=== PATIENT | female | born 1990 | race Caucasian/White ===

== ENCOUNTER 2019-08-24 20:10 | Emergency (ER) | payer MEDICAID ==
[~2019-08-24] VITALS: Ht 165.1 cm; Wt 61.2 kg
[2019-08-24 20:36] VITALS: BP_SYST 136
--- NOTE | 2019-08-24 20:36 | NUR ---
Patient to ER bed 06 to gown for evaluation. Side rails up. Report given to LI Noble.
--- NOTE | 2019-08-24 20:40 | NUR ---
Pt brought in by sister Joya. Pt sister stated that the patient and herself were in the grocery store when the patient appeared to be "leaning out of her wheelchair" and behaving in altered state, not responding to questions appropriately. Sister states that patient was then lifted into vehicle with help from bystanders and she came to ED. Pt presented to ED mildly confused, lethargic. Pt and family member interviewed and states no chest pain, no nausea, no vomiting, no diarrhea, no shortness of breath. Pt denies additional medical complaint at this time. Pt denies pain. Pt states that she has had her indwelling catheter in for approx 1 month without being changed. Pt also states that her catheter had to be modified because it broke open at some point. Pt states she had UTi prior to starting catheter. Pt resting in ed bed comfortably, no acute distress. Pt VSS
--- NOTE | 2019-08-24 20:45 | NUR ---
ER at bedside examining patient.
[2019-08-24] MEDS ORDERED: NACL 0.9% 1,000 ML IV ONE (20:48)
[2019-08-24] MEDS ORDERED: LORazepam 2 MG/ML VIAL IVP ONE (21:00)
[2019-08-24 21:52] LABS: BILIRUBIN,URINE NEGATIVE (NEGATIVE); BLOOD, URINE NEGATIVE (NEGATIVE); COLOR,URINE YELLOW (YELLOW); GLUCOSE,URINE NEGATIVE (NEGATIVE); KETONES,URINE NEGATIVE (NEGATIVE); LEUKOCYTE ESTERASE ,URINE 2+ (NEGATIVE); NITRITE, URINE POSITIVE (NEGATIVE); PH,URINE 5.5 (5.0-8.0); PROTEIN URINE NEGATIVE (NEGATIVE); UROBILINOGEN,URINE 0.2 (0.2-1.0)
[2019-08-24 22:00] LABS: BASOPHILS # (AUTO) 0.1 K/uL (0.0-0.2); BASOPHILS % (AUTO) 0.6 % (0.0-2.0); EOSINOPHILS # (AUTO) 0.3 K/uL (0.0-0.4); EOSINOPHILS % (AUTO) 3.9 % (0.0-4.0); HEMATOCRIT 40.9 % (36-48); HEMOGLOBIN 13.8 g/dL (12.0-16.0); LYMPHOCYTES # (AUTO) 3.3 K/uL (1.0-5.5); LYMPHOCYTES % (AUTO) 39.2 % (20.5-51.5); MEAN CORPUSCULAR HEMOGLOBIN 30 pg (27-31); MEAN CORPUSCULAR HGB CONC 34 % (32-36); MEAN CORPUSCULAR VOLUME 90 fL (79.0-98.0); MONOCYTES # (AUTO) 0.8 K/uL (0.0-1.0); MONOCYTES % (AUTO) 9.1 % (1.7-9.3); NEUTROPHILS % (AUTO) 47.2 % (40.0-70.0); PLATELET COUNT (AUTO) 350 K/uL (130-430); RED BLOOD CELL COUNT(AUTO) 4.56 MIL/uL (4.2-6.2); RED CELL DISTRIBUTION WIDTH 12.9 % (9.0-15.0); WHITE BLOOD COUNT (AUTO) 8.4 K/uL (4.8-10.8)
--- NOTE | 2019-08-24 22:00 | NUR ---
Pt resting in ED bed comfortably. No acute distress. Sister bedside.
[2019-08-24 22:04] LABS: CALCIUM 9.2 mg/dL (8.4-11.0); CREATININE 0.76 mg/dL (0.55-1.30); POTASSIUM 3.6 mmol/L (3.5-5.1)
[2019-08-24 22:04] LABS: BARBITURATE, URINE NEGATIVE (NEG <=200); BENZODIAZEPINE, URINE NEGATIVE (NEG <=150); CANNABINOID, URINE NEGATIVE (NEG <=50); COCAINE, URINE NEGATIVE (NEG <=150); METHAMPHETAMINES SCREEN,URINE NEGATIVE (NEG <=500); OPIATE, URINE NEGATIVE (NEG <=100); PHENCYCLIDINE SCREEN,URINE NEGATIVE (NEG <=25); UR TRICYCLIC ANTIDEPRESSANTS NEGATIVE (NEG <=300); URINE AMPHETAMINE NEGATIVE (NEG <=500); URINE METHADONE NEGATIVE (NEG <=200); URINE OXYCODONE SCREEN POSITIVE (NEG <=100); URINE PROPOXYPHENE SCREEN NEGATIVE (NEG <=300)
[2019-08-24 22:10] LABS: ALBUMIN 4.2 g/dL (3.4-4.8); TOTAL BILIRUBIN 0.5 mg/dL (0.0-1.0)
[2019-08-24 22:13] LABS: CLARITY/URINE HAZY (CLEAR)
[2019-08-24 22:16] LABS: BACTERIA,URINE MODERATE /HPF (None Seen); MUCUS,URINE None Seen /LPF (None Seen); RBC,URINE 0-3 /HPF (0-3)
[2019-08-24] MEDS ORDERED: cefTRIAXone 1 GM IVPB PREMIX 50 ML IV ONE (22:30)
--- NOTE | 2019-08-24 23:12 | NUR ---
Sister of patient requested new blanket, blanket and pillow provided.
--- NOTE | 2019-08-25 00:31 | NUR ---
Pt denies any pain at this time. Pt resting comfortably.
--- NOTE | 2019-08-25 01:10 | NUR ---
Pt tolerating IV fluids well.
--- NOTE | 2019-08-25 02:00 | NUR ---
Pt Indwelling danielson catheter Removed, discarded. Pt provided with [facility] [employer], assisted with personal hygeine.
--- NOTE | 2019-08-25 03:25 | NUR ---
# 16 FR Danielson catheter with use of sterile technique. Immediate return of 100 cc Clear, light yellow urine noted. Bedside drainage bag placed below level of bladder. Urine sample collected and sent to lab. Pt tolerated procedure well. Patient arrived with danielson in place, changed due to standard of practice, and current uti.
--- NOTE | 2019-08-25 04:00 | NUR ---
Pt Tolerating IV fluids, New placed danielson catheter, medications well.
[2019-08-25 04:50] VITALS: BP_SYST 130
--- NOTE | 2019-08-25 04:50 | NUR ---
Patient given written and verbal discharge instructions and verbalizes understanding. ER MD discussed with patient the results and treatment provided. Patient in stable condition. ID arm band removed. IV catheter removed intact and dressing applied, no active bleeding. Rx of Nitrofurantoin given. Patient educated on pain management and to follow up with PMD. Pain Scale 0/10. Opportunity for questions provided and answered. Medication side effect fact sheet provided.
== END 2019-08-25 04:50 | disposition home or self-care (01) ==
LOC: SED 20:10
DX: N39.0 Urinary tract infection, site not specified (principal); M62.838 Other muscle spasm; R55 Syncope and collapse; R42 Dizziness and giddiness; R11.0 Nausea
CPT/HCPCS: 36415; 80053; 80307; 81000; 83605; 85025; 87040; 87086; 96361; 96365; 96375; 99284; J0696; J2060; J7030; 87186-TC

== ENCOUNTER 2019-08-30 15:02 | Emergency (ER) | payer MEDICAID ==
[~2019-08-30] VITALS: Ht 172.7 cm; Wt 68.0 kg
[2019-08-30 15:19] VITALS: BP_SYST 123
[2019-08-30] MEDS ORDERED: NACL 0.9% 1,000 ML IV ONE (16:52)
[2019-08-30] MEDS ORDERED: DIPHENHYDRAMINE INJ 50 MG/ML VIAL IVP ONE (17:00)
[2019-08-30] MEDS ORDERED: ONDANSETRON HCL 4 MG/2 ML VIAL IVP ONE ×2 (17:00→20:30)
[2019-08-30] MEDS ORDERED: KETOROLAC TROMETHAMINE 30 MG VIAL IVP ONE (17:00)
[2019-08-30 17:32] LABS: BILIRUBIN,URINE NEGATIVE (NEGATIVE); CLARITY/URINE CLEAR (CLEAR); COLOR,URINE YELLOW (YELLOW); GLUCOSE,URINE NEGATIVE (NEGATIVE); KETONES,URINE NEGATIVE (NEGATIVE); LEUKOCYTE ESTERASE ,URINE NEGATIVE (NEGATIVE); NITRITE, URINE NEGATIVE (NEGATIVE); PH,URINE 5.5 (5.0-8.0); PROTEIN URINE NEGATIVE (NEGATIVE); UROBILINOGEN,URINE 0.2 (0.2-1.0)
[2019-08-30 17:33] LABS: BASOPHILS % (AUTO) 0.2 % (0.0-2.0); EOSINOPHILS # (AUTO) 0.2 K/uL (0.0-0.4); EOSINOPHILS % (AUTO) 2.9 % (0.0-4.0); HEMATOCRIT 40.5 % (36-48); HEMOGLOBIN 13.8 g/dL (12.0-16.0); LYMPHOCYTES # (AUTO) 1.6 K/uL (1.0-5.5); MEAN CORPUSCULAR HEMOGLOBIN 31 pg (27-31); MEAN CORPUSCULAR HGB CONC 34 % (32-36); MEAN CORPUSCULAR VOLUME 90 fL (79.0-98.0); MONOCYTES # (AUTO) 0.5 K/uL (0.0-1.0); MONOCYTES % (AUTO) 7.3 % (1.7-9.3); NEUTROPHILS # (AUTO) 4.1 K/uL (1.8-7.7); NEUTROPHILS % (AUTO) 64.6 % (40.0-70.0); PLATELET COUNT (AUTO) 296 K/uL (130-430); RED BLOOD CELL COUNT(AUTO) 4.51 MIL/uL (4.2-6.2); RED CELL DISTRIBUTION WIDTH 13.3 % (9.0-15.0); WHITE BLOOD COUNT (AUTO) 6.3 K/uL (4.8-10.8)
[2019-08-30 17:38] LABS: BLOOD, URINE TRACE (NEGATIVE)
[2019-08-30 17:39] LABS: BACTERIA,URINE FEW /HPF (None Seen); MUCUS,URINE None Seen /LPF (None Seen); RBC,URINE 0-3 /HPF (0-3); WBC,URINE 0-3 /HPF (0-3)
[2019-08-30 17:41] LABS: CREATININE 0.6 mg/dL (0.55-1.30); POTASSIUM 3.9 mmol/L (3.5-5.1)
[2019-08-30 17:41] LABS: BARBITURATE, URINE NEGATIVE (NEG <=200); BENZODIAZEPINE, URINE NEGATIVE (NEG <=150); CANNABINOID, URINE NEGATIVE (NEG <=50); COCAINE, URINE NEGATIVE (NEG <=150); METHAMPHETAMINES SCREEN,URINE NEGATIVE (NEG <=500); OPIATE, URINE NEGATIVE (NEG <=100); PHENCYCLIDINE SCREEN,URINE NEGATIVE (NEG <=25); UR TRICYCLIC ANTIDEPRESSANTS NEGATIVE (NEG <=300); URINE AMPHETAMINE NEGATIVE (NEG <=500); URINE METHADONE NEGATIVE (NEG <=200); URINE OXYCODONE SCREEN POSITIVE (NEG <=100); URINE PROPOXYPHENE SCREEN NEGATIVE (NEG <=300)
[2019-08-30 17:44] LABS: PROTHROMBIN TIME 9.9 SECS (9.5-12.5)
[2019-08-30 17:46] LABS: ALBUMIN 4.4 g/dL (3.4-4.8); TOTAL BILIRUBIN 0.3 mg/dL (0.0-1.0)
[2019-08-30] MEDS ORDERED: ONDANSETRON 4 MG ODT TAB PO ONE (20:30)
[2019-08-30 20:38] VITALS: BP_SYST 128
[2019-08-30] MEDS ORDERED: ONDANSETRON 4 MG ODT TAB ONE (20:49)
== END 2019-08-30 20:38 | disposition home or self-care (01) ==
LOC: SED 15:02
DX: S06.9X0A Unspecified intracranial injury without loss of consciousness, initial encounter (principal); R42 Dizziness and giddiness; Z88.1 Allergy status to other antibiotic agents; X58.XXXA Exposure to other specified factors, initial encounter; Y93.89 Activity, other specified; Y92.89 Other specified places as the place of occurrence of the external cause; Y99.8 Other external cause status
CPT/HCPCS: 36415; 70450; 71045; 80053; 80307; 81000; 82150; 82550; 83605; 83690; 85025; 85610; 85730; 87040; 93005; 96361; 96374; 96375; 99285; J1200; J1885; J2405; J7030; Q0162